=== PATIENT | female | born 1965 | race Caucasian/White ===

== ENCOUNTER 2022-10-30 07:52 | Emergency (ER) | payer OTHER ==
[~2022-10-30] VITALS: Ht 182.9 cm; Wt 93.0 kg
[2022-10-30] MEDS ORDERED: PANTOPRAZOLE SO40 M2 PO (08:06)
[2022-10-30] MEDS ORDERED: AIMOVIG AU70 MG/1 ML PO (08:06)
[2022-10-30] MEDS ORDERED: TOPAMAX25 MG PO (08:07)
[2022-10-30] MEDS ORDERED: KETO10TA2 PO (12:02)
== END 2022-10-30 12:25 | disposition home or self-care (01) ==
LOC: ER 07:52
DX: S89.92XA Unspecified injury of left lower leg, initial encounter (principal); X58.XXXA Exposure to other specified factors, initial encounter; Y93.9 Activity, unspecified; Y92.9 Unspecified place or not applicable; Y99.9 Unspecified external cause status; Z88.0 Allergy status to penicillin